=== PATIENT | female | born 1995 | race Caucasian/White ===

== ENCOUNTER 2024-03-30 10:31 | Emergency (ER) | payer BC ==
[~2024-03-30] VITALS: Ht 167.6 cm; Wt 52.6 kg
[2024-03-30 11:29] LABS: APPEARANCE,URINE SLIGHTLY CLOUDY (CLEAR); BILIRUBIN,URINE NEGATIVE (NEGATIVE); BLOOD, URINE NEGATIVE Ery/uL (NEGATIVE); COLOR,URINE YELLOW (YELLOW); KETONES,URINE 1+ mg/dL (NEGATIVE); LEUKOCYTE ESTERASE ,URINE 3+ (NEGATIVE); NITRITE, URINE POSITIVE (NEGATIVE); PROTEIN,URINE 1+ mg/dl (NEGATIVE); UGLUCOSE NEGATIVE (NEGATIVE); UROBILINOGEN,URINE 0.2 EU/dL (0.2)
[2024-03-30 11:32] LABS: ADD URINE CULTURE YES; BACTERIA,URINE Moderate /HPF (None Seen); SQUAMOUS EPITHELIAL CELL,UR Few /HPF (None Seen)
[2024-03-30] MEDS ORDERED: KETOROLAC TROMETHAMINE INJ 30 MG/ML VIAL ONE (11:33)
[2024-03-30] MEDS: KETOROLAC TROMETHAMINE 15 MG/ML VIAL IV ONE (11:44)
[2024-03-30] MEDS: IV NS 0.9% 1,000 ML BAG IV ONE (11:44)
[2024-03-30 11:53] LABS: BASOPHILS % (AUTO) 0.4 % (0.0-2.0); EOSINOPHILS % (AUTO) 0.1 % (0.0-6.0); HEMATOCRIT 45 % (33-45); HEMOGLOBIN 14.9 g/dL (11.5-14.8); LYMPHOCYTES # (AUTO) 1.1 K/uL (0.8-4.8); LYMPHOCYTES % (AUTO) 13.1 % (20.0-44.0); MEAN CORPUSCULAR HEMOGLOBIN 31 PG (26.0-33.0); MEAN CORPUSCULAR HGB CONC 33 g/dl (31.0-36.0); MEAN CORPUSCULAR VOLUME 92 fL (82-100); MONOCYTES # (AUTO) 0.5 K/uL (0.1-1.30); MONOCYTES % (AUTO) 6.3 % (2.0-12.0); NEUTROPHILS # (AUTO) 6.5 K/uL (1.8-8.9); NEUTROPHILS % (AUTO) 80.1 % (43.0-81.0); PLATELET COUNT (AUTO) 256 K/uL (150-450); RED BLOOD CELL COUNT(AUTO) 4.87 MIL/uL (4.0-5.2); RED CELL DISTRIBUTION WIDTH 12.2 % (11.5-15.0); WHITE BLOOD COUNT (AUTO) 8.2 K/uL (4.3-11.0)
[2024-03-30 12:04] LABS: CALCIUM, SERUM 9.5 mg/dL (8.5-10.1); CREATININE 0.7 mg/dL (0.6-1.3); POTASSIUM 3.9 mmol/L (3.5-5.1)
[2024-03-30] MEDS ORDERED: ALPRAZOLAM 0.5 MG TABLET ONE (12:05)
[2024-03-30] MEDS: ALPRAZOLAM 0.5 MG TABLET PO ONE (12:10)
--- NOTE | 2024-03-30 12:10 | NUR ---
0.5 mg xanax oral pill administered as ordered
[2024-03-30 12:11] LABS: ALBUMIN 4.2 g/dL (3.4-5.0); BILIRUBIN,DIRECT 0.2 mg/dL (0.0-0.2); TOTAL PROTEIN, SERUM 7.9 g/dL (6.4-8.2)
[2024-03-30] MEDS ORDERED: CT SWABBABLE VALVE TRANS SET 1 EA INFUS.SET MC ONE (12:44)
[2024-03-30] MEDS ORDERED: IOHEXOL-300 100 ML VIAL IV ONE (12:44)
[2024-03-30] MEDS ORDERED: IV NS 0.9% 250 ML IV ONE (12:44)
--- NOTE | 2024-03-30 13:41 | NUR ---
CALLED [facility] [phone] WILL ASK RADIOLOGIST TO READ STAT.
[2024-03-30] MEDS ORDERED: LEVO500T90 PO (14:00)
[2024-03-30 14:33] VITALS: BP 121/80; TEMP 98.4; O2SAT 99
== END 2024-03-30 14:34 | disposition home or self-care (01) ==
LOC: ER 10:39
DX: N39.0 Urinary tract infection, site not specified (principal); R10.2 Pelvic and perineal pain
CPT/HCPCS: 99285; 74177; 96374; 96361; 85025; 80048; 87086; 83690; 80076; 81001; 36415; 84702; J1885; J7030; J7050; Q9967